=== PATIENT | female | born 1985 | race American Indian/Alaskan Native ===

== ENCOUNTER 2018-11-24 21:33 | Emergency (ER) | payer OTHER ==
[2018-11-25] MEDS ORDERED: TYLENOL PO ONE (02:09)
[2018-11-25] MEDS ORDERED: IBUPROFEN PO ONE (02:09)
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
[2018-11-25 03:17] VITALS: BP 120/69
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
== END 2018-11-25 07:30 | disposition home or self-care (01) ==
LOC: ED 21:33
DX: S63.92XA Sprain of unspecified part of left wrist and hand, initial encounter (principal); M62.830 Muscle spasm of back; R25.2 Cramp and spasm; V49.49XA Driver injured in collision with other motor vehicles in traffic accident, initial encounter; Y93.89 Activity, other specified; Y92.89 Other specified places as the place of occurrence of the external cause; Y99.8 Other external cause status
CPT/HCPCS: 70450; 72125; 72131